=== PATIENT | male | born 1955 | race Caucasian/White ===

== ENCOUNTER → 2025-03-03 | Outpatient (CLI) | payer MEDICARE, SELFPAY ==
--- NOTE | 2025-03-03 | XR_ITS ---
Examination: Bilateral hips, AP pelvis, 5 views Technique: AP, lateral views both hips, AP pelvis, 5 views Exam date and time: March 03, 2025 0824 hours Comparison November 19, 2022 INDICATIONS: Left hip pain 2 years. FINDINGS: No hip or pelvic fracture. Again noted moderate narrowing hip joints bilaterally. Moderate osteopenia IMPRESSION: Stable moderate narrowing hip joints
== END | disposition home or self-care (01) ==
LOC: CDIM 08:09
PROVIDERS: PCP Internal Medicine
DX: M25.852 Other specified joint disorders, left hip (principal); M25.851 Other specified joint disorders, right hip
CPT/HCPCS: 73523

== ENCOUNTER → 2025-04-28 | Outpatient (CLI) | payer MEDICARE, SELFPAY ==
--- NOTE | 2025-04-28 09:00 | XR_ITS ---
Examination: MRI lumbar spine without contrast Date and time of exam: April 28, 2025 0910 hours INDICATIONS: Low back pain years, status post lumbar surgery Technique: Multiple MRI axial and sagittal sections lumbar spine. Sagittal T2-weighted images, TR 3500, TE 118 T1 weighted transverse sections, TR 688 T8.5, T2-weighted sagittal sections T1 weighted sagittal sections TR 621, TE 30 T2 axial sections, TR 4, 190, TE 84. Findings: Lumbar fusion with disc spacers L4-S1 with anatomic alignment No lumbar fracture Normal marrow signal lumbar vertebral bodies L5-S1 no disc protrusion L4-L5 no disc protrusion L3-L4 no disc protrusion L2-L3 no disc protrusion L1-L2 no disc protrusion IMPRESSION: Lumbar fusion L4-S1 with anatomic alignment No significant acquired spinal stenosis
== END | disposition home or self-care (01) ==
LOC: SMRI 08:36
PROVIDERS: PCP Internal Medicine
DX: M43.27 Fusion of spine, lumbosacral region (principal)
CPT/HCPCS: 72148